=== PATIENT | female | born 1965 | race Hispanic/Latino ===

== ENCOUNTER 2021-09-18 18:08 | Emergency (ER) | payer OTHER ==
[~2021-09-18] VITALS: Ht 162.6 cm; Wt 95.3 kg
[2021-09-18] MEDS ORDERED: ACETAMINOPHEN 500 MG TABLET PO ONE (20:30)
[2021-09-18] MEDS ORDERED: IBUP-2070 PO (20:33)
[2021-09-18 21:08] VITALS: BP 132/74
== END 2021-09-18 21:10 | disposition home or self-care (01) ==
LOC: EDBD 18:08 → EDH 18:08 → EDUNIT# 18:08 → EDH 21:10
DX: M25.511 Pain in right shoulder (principal); M54.2 Cervicalgia; V43.52XA Car driver injured in collision with other type car in traffic accident, initial encounter; Y93.89 Activity, other specified; Y92.89 Other specified places as the place of occurrence of the external cause; Y99.8 Other external cause status
CPT/HCPCS: 70450; 71045; 72125; 73030